=== PATIENT | male | born 1955 | race Caucasian/White ===

== ENCOUNTER 2020-04-20 09:48 | Outpatient (REF) | payer OTHER, SELFPAY ==
[2020-04-20 14:32] LABS: Alanine Aminotransferase 24 U/L (0-40); Albumin Level 4.4 g/dL (3.5-5.0); Alkaline Phosphatase 52 U/L (39-117); Anion Gap 13 (12-20); Aspartate Amino Transferase 20 U/L (5-37); Bilirubin Total 0.8 mg/dL (0.0-1.0); Blood Urea Nitrogen 14 mg/dL (9-16); Calcium 9.2 mg/dL (8.4-10.2); Carbon Dioxide 26 mmol/L (22-29); Chloride 105 mmol/L (96-108); Cholesterol 142 mg/dL; Estimated Glomerular Filt Rate > 60; Glucose Fasting 89 mg/dL (60-99); HDL Cholesterol 45 mg/dL; LDL Cholesterol Calculated 80 mg/dl; Potassium 4.4 mmol/l (3.3-5.1); Sodium 140 mmol/L (135-145); Total Protein 7.5 g/dL (6.5-8.0); Triglycerides 88 mg/dL
[2020-04-20 14:52] LABS: TSH reflex Free T4 1.22 mIU/mL (0.32-4.0)
== END 2020-04-20 09:49 | disposition home or self-care (01) ==
LOC: HO.HMGCLDS 09:48
PROVIDERS: PCP Nurse Practitioner Family; Visit Provider Nurse Practitioner Family
DX: I49.9 Cardiac arrhythmia, unspecified (principal)
CPT/HCPCS: 80053; 80061; 84443

== ENCOUNTER 2020-07-21 06:53 | Outpatient (REF) | payer OTHER, SELFPAY ==
[2020-07-21 12:13] LABS: Alanine Aminotransferase 32 U/L (0-40); Albumin Level 4.5 g/dL (3.5-5.0); Alkaline Phosphatase 53 U/L (39-117); Anion Gap 13 (12-20); Aspartate Amino Transferase 23 U/L (5-37); Bilirubin Total 0.9 mg/dL (0.0-1.0); Blood Urea Nitrogen 15 mg/dL (9-16); Calcium 8.9 mg/dL (8.4-10.2); Carbon Dioxide 28 mmol/L (22-29); Chloride 103 mmol/L (96-108); Cholesterol 142 mg/dL; Estimated Glomerular Filt Rate > 60; Glucose Fasting 111 mg/dL (60-99); HDL Cholesterol 42 mg/dL; LDL Cholesterol Calculated 74 mg/dl; Potassium 4.1 mmol/L (3.3-5.1); Sodium 140 mmol/L (135-145); Total Protein 7.7 g/dL (6.5-8.0); Triglycerides 134 mg/dL
[2020-07-21 12:26] LABS: TSH reflex Free T4 2.34 uIU/mL (0.32-4.0)
[2020-07-21 14:21] LABS: Prostate Specific Antigen Scr 2.04 ng/mL (<0.05-4.0)
== END 2020-07-21 06:54 | disposition home or self-care (01) ==
LOC: HO.HMGCLDS 06:53
PROVIDERS: PCP Nurse Practitioner Family; Visit Provider Nurse Practitioner Family
DX: Z00.00 Encounter for general adult medical examination without abnormal findings (principal); Z12.5 Encounter for screening for malignant neoplasm of prostate
CPT/HCPCS: 36415; 80053; 80061; 84153; 84443

== ENCOUNTER 2020-09-03 07:51 | Outpatient (REF) | payer MEDICARE, SELFPAY | END 2020-09-03 07:52 | disposition home or self-care (01) | LOC: HO.HMGCLDS 07:51 | PROVIDERS: PCP Nurse Practitioner Family; Visit Provider Internal Medicine | DX: Z20.822 Contact with and (suspected) exposure to COVID-19 (principal) | CPT/HCPCS: 36415; C9803; U0003; U0005 ==

== ENCOUNTER 2022-08-10 11:50 | Day surgery (SDC) | payer MEDICARE, SELFPAY ==
[2022-08-10 12:15] VITALS: BMI 33.0
[2022-08-10 12:24] VITALS: BP 177/91; PULSE 60; RESP 16; TEMP 36.1; O2SAT 97
--- NOTE | 2022-08-10 12:28 | HO.ANESPROP2 ---
[facility] Active Problems Active Problems: All Active Problems (Updated 08/09/22 @ 14:12 by Elina Mata RN) Irregular heart rhythm (Acute) Physical exam (Acute) Screening PSA (prostate specific antigen) (Acute) Carpal tunnel syndrome (Acute) Past Medical History Medical History (Updated 08/09/22 @ 14:12 by Elina Mata RN) History of cardiovascular stress test HTN (hypertension) Hyperlipidemia Family History Family History (Reviewed 04/20/20 @ 11:34 by [facility]) Father CVD (cardiovascular disease) Stroke Mother No problems noted. Brother No problems noted. Sister No problems noted. Son No problems noted. Daughter No problems noted. Daughter No problems noted. Family history of problems with anesthesia: No Surgical History Surgical History (Updated 08/10/22 @ 12:12 by Merissa Shine) H/O cardiac catheterization H/O knee surgery History of colonoscopy History of Problems with Anesthesia: No Social History Social History (Reviewed 04/20/20 @ 11:34 by Lam Alvarez [facility]) Alcohol intake: current Alcohol intake frequency: a few times a week Alcohol type: beer Patient Tobacco Use Status: Former Tobacco user Quit Date: 1984 Tobacco use type: Cigarette Smoked in Last 30 Days: No Use of substances other than those prescribed or required for medical reasons: No Are you DNR?: No Advance Directives: No Advance Directives Information Provided: Yes Meds Allergies Allergy/AdvReac Type Severity Reaction Status Date / Time No Known Allergies Allergy Verified 08/10/22 12:15 Exam Exam Date and Time: August 10, 2022 1228 Height,Weight and Vital Signs: Height 6 ft 1 in Weight 113.398 kg Last Vital Signs Temp 97.0 F 08/10/22 12:24 Pulse 60 08/10/22 12:24 Resp 16 08/10/22 12:24 BP 177/91 H 08/10/22 12:24 Pulse Ox 97 08/10/22 12:24 O2 Del Method 08/10/22 12:24 Airway Mallampati Class: II ([place]) TM Dist: >3cm Neck ROM: Full Heart: rrr Lungs: cta Assessment and Plan Assessment Anesthesia Assessment: Anesthesia Plan Discussed and Chart Reviewed Final Anesthetic Review Family History of Problems with Anesthesia: No History of Problems with Anesthesia: No NPO: Yes ASA Class: II Final Preanesthetic Review: No Changes in Pt Med Stat, Meds/Allgs Chart Reviewed and Consent Obtained/Reviewed Patient Risk: Intermediate Procedure Risk: Intermediate Anesthetic Plan Anesthetic Plan: MAC: Disposition: Standard PACU
[2022-08-10] MEDS: Lactated Ringers 1,000 ML 50 ML IVCONT (12:41)
--- NOTE | 2022-08-10 13:01 | MHC.SHP ---
Pre-Procedural Eval Section A Date of Service: 08/10/22 Section B Chief Complaint: screening Details of Present Illness: see H&P no changes Relevant Family History (Specify if Yes): No Relevant Social History: None Present Medications: see Short Stay Collaborative assessment Medical History: No relevant PMH Allergies: Allergies Allergy/AdvReac Type Severity Reaction Status Date / Time No Known Allergies Allergy Verified 08/10/22 12:15 Review of Systems Sugical H&P ROS: Negative: Constitution, Cardiovascular, Respiratory, Neurological, Psychiatric, Hem-Onc, Allergic/Immunologic, Gastrointestinal, Genitourinary, Musculoskeletal, Integumentary, Endocrine and Eyes/Ears/Nose/Throat Exam Surgical H&P Exam: Normal: HEENT, Normal: Heart, Normal: Lungs, Normal: Extremities, Normal: Abdomen, Normal: Skin and Normal: Neurological Plan Diagnosis/Plan: Unchanged I have reviewed the history and physical and performed a pertinent physical examination on my patient. No changes have occurred unless specified. Time Spent With Patient Time: Total time managing care of this patient today ____ minutes.
--- NOTE | 2022-08-10 13:34 | P.BOP_ITS ---
Brief Operative Note Date of Service: 08/10/22 Pre-op diagnosis: screening Post-op diagnosis: same Procedure: colonoscopy Surgeon: Robert Severino Anesthesia: MAC Was an Plate Sensitizer used for this Procedure?: No Estimated blood loss (mL): 1 Pathology: other Condition: stable Disposition: PACU
[2022-08-10 13:42] VITALS: BP 95/47; PULSE 64; RESP 12; TEMP 36.6; O2SAT 95
[2022-08-10 14:04] VITALS: BP 137/77; PULSE 61; RESP 18; TEMP 36.6; O2SAT 99
--- NOTE | 2022-08-11 00:42 | OP_ITS ---
SURGEON: Robert Severino MD INDICATIONS: Colon cancer screening. PREOPERATIVE DIAGNOSIS: POSTOPERATIVE DIAGNOSIS: PROCEDURE PERFORMED: ESTIMATED BLOOD LOSS: COMPLICATIONS: ANESTHESIA: ASSISTANTS: SPECIMENS: PROCEDURE: Colonoscopy to the terminal ileum with biopsy. MEDICATIONS: Monitored anesthesia care. PROCEDURE DESCRIPTION: A history and physical performed. The procedure was performed on 08/10/2022. The risks and benefits of the procedure were explained to the patient. Informed consent was obtained. The patient was placed in the left lateral decubitus position. A digital rectal exam was performed and was found to be normal. The Olympus pediatric videocolonoscope was introduced into the rectum and advanced to the cecum. The cecum was identified by transillumination, palpation, and identification of ileocecal valve. Examination was performed. The scope was removed. He tolerated the procedure well and was taken to the recovery area in stable condition. FINDINGS: The terminal ileum was examined and it appeared normal. The visualized colonic mucosa was normal. The quality of the prep was good except in the right colon where there was some retained stool. This was washed and suctioned. A single polyp was identified in the rectum measuring less than 5 mm. This was removed with a biopsy forceps. A retroflexed examination showed moderate-sized internal hemorrhoids and a few hypertrophic anal papillae. There was mild sigmoid diverticulosis. IMPRESSION: Colon polyp. RECOMMENDATION: Follow up the biopsy results. MD VIVI Cannon/[place] / [id number]
== END 2022-08-10 14:28 | disposition home or self-care (01) ==
PROVIDERS: PCP Internal Medicine; Visit Provider Internal Medicine Gastroenterology
PROC: 0DJD8ZZ Inspection of Lower Intestinal Tract, Via Natural or Artificial Opening Endoscopic (ICD-10-PCS; CPT 45378; principal; 2022-08-10 13:00)
DX: Z12.11 Encounter for screening for malignant neoplasm of colon (principal); Z80.0 Family history of malignant neoplasm of digestive organs; Z86.010 Personal history of colon polyps; K62.1 Rectal polyp; K57.30 Diverticulosis of large intestine without perforation or abscess without bleeding; K64.8 Other hemorrhoids; I10 Essential (primary) hypertension; E78.00 Pure hypercholesterolemia, unspecified; Z79.899 Other long term (current) drug therapy; Z87.891 Personal history of nicotine dependence
CPT/HCPCS: 45380; 88305; J2250